=== PATIENT | male | born 1950 | race Hispanic/Latino ===

== ENCOUNTER → 2025-02-21 | Outpatient (REF) | payer MEDICARE | LOC: RAD 07:35 | PROVIDERS: ATTEND Internal Medicine | DX: R07.89 Other chest pain (principal); S29.9XXA Unspecified injury of thorax, initial encounter | CPT/HCPCS: 71101 ==

== ENCOUNTER → 2025-03-06 | Outpatient (REF) | payer MEDICARE | LOC: CT 13:32 | PROVIDERS: ATTEND Internal Medicine | DX: R93.89 Abnormal findings on diagnostic imaging of other specified body structures (principal) | CPT/HCPCS: 71250 ==

== ENCOUNTER → 2025-04-24 | Outpatient (REF) | payer MEDICARE ==
[~2025-04-24] MED LIST: IOPAMIDOL 370 MG/ML 100 ML INFUS..BTL INJ ONE
[2025-04-24 08:59] LABS: CREATININE, SERUM 0.93 mg/dL (0.72-1.25)
== END ==
LOC: CT 08:09
PROVIDERS: ATTEND Internal Medicine
DX: R10.12 Left upper quadrant pain (principal)
CPT/HCPCS: 36415; 74160; 82565; 84520; Q9967